=== PATIENT | female | born 1975 | race Caucasian/White ===

== ENCOUNTER 2017-12-04 22:29 | Emergency (ER) | payer MEDICAID ==
[~2017-12-04] VITALS: Ht 121.9 cm; Wt 68.0 kg
[2017-12-04] MEDS ORDERED: HYDR25TA4 PO (22:49)
--- NOTE | 2017-12-04 22:57 | NUR ---
Patient discharged to home in stable conditon. Written and verbal after care instructions given. Patient verbalizes understanding of instructions.
== END 2017-12-04 22:58 | disposition home or self-care (01) ==
LOC: ER 22:30
DX: J40 Bronchitis, not specified as acute or chronic (principal); I10 Essential (primary) hypertension; Z79.899 Other long term (current) drug therapy
CPT/HCPCS: A4663

== ENCOUNTER 2018-07-25 22:29 | Emergency (ER) | payer MEDICAID ==
[~2018-07-25] VITALS: Ht 149.9 cm; Wt 86.2 kg
[~2018-07-25 22:29] MED LIST: HYDR25TA4 PO
--- NOTE | 2018-07-25 22:47 | NUR ---
Dr. Gary at bedside for MSE. Pt ambulated in ER with stable gait. Pt is AAO x 4, maltese speaking only. Pt is stating that she had pressure/pinching pain on her chest radiating to her back at 5 pm today, which she has never felt before. At this time, pt is c/o back pain and headache. Pt denies SOB and chest pain. Safe environment implemented, bed in low locked position with side rails up.
--- NOTE | 2018-07-25 23:32 | NUR ---
Pt in bed at this time, in no acute distress.
[2018-07-25 23:35] LABS: BASOPHILS % (AUTO) 0.3 % (0.0-2.0); EOSINOPHILS # (AUTO) 0.6 K/uL (0.0-0.7); EOSINOPHILS % (AUTO) 5.9 % (0.0-7.0); HEMATOCRIT 34.4 % (31.2-41.9); HEMOGLOBIN 11.8 g/dL (10.9-14.3); LYMPHOCYTES # (AUTO) 2.7 K/uL (20.0-40.0); LYMPHOCYTES % (AUTO) 28.7 % (20.5-51.5); MEAN CORPUSCULAR HGB CONC 34 g/dL (32.3-35.6); MEAN CORPUSCULAR VOLUME 84.6 fL (75.5-95.3); MONOCYTES # (AUTO) 0.6 K/uL (2.0-10.0); MONOCYTES % (AUTO) 6.8 % (0.0-11.0); NEUTROPHILS # (AUTO) 5.5 K/uL (1.8-8.9); NEUTROPHILS % (AUTO) 58.3 % (38.5-71.5); PLATELET COUNT (AUTO) 221 K/uL (179-408); RED BLOOD CELL COUNT(AUTO) 4.06 MIL/uL (3.63-4.92); WHITE BLOOD COUNT (AUTO) 9.4 K/uL (3.8-11.8)
[2018-07-25 23:40] LABS: BILIRUBIN,DIRECT 0.1 mg/dL (0.0-0.2); BILIRUBIN,TOTAL 0.4 mg/dL (0.2-1.0); POTASSIUM 3.2 mmol/L (3.5-5.1); TOTAL PROTEIN, SERUM 7.7 g/dL (6.4-8.2)
[2018-07-25 23:44] LABS: *URINE HCG, QUAL NEGATIVE (NEGATIVE)
--- NOTE | 2018-07-26 00:24 | NUR ---
Pt went down to radiology dept for CTA.
[2018-07-26] MEDS ORDERED: IV NORMAL SALINE 250 ML IV ONE (00:28)
[2018-07-26] MEDS ORDERED: SWABABLE VALVE TRANSFER SET EA MC ONE (00:28)
[2018-07-26] MEDS ORDERED: IOHEXOL 350 100 ML INFUS..BTL ONE (00:28)
[2018-07-26] MEDS ORDERED: NORMAL SALINE FLUSH 10 ML DISP.SYRIN ONE (00:28)
--- NOTE | 2018-07-26 01:00 | NUR ---
Pt back in room from CT
[2018-07-26] MEDS ORDERED: CLONIDINE HCL 0.2 MG TABLET ONE (01:43)
[2018-07-26] MEDS ORDERED: CLONIDINE HCL 0.2 MG TABLET PO ONE (01:45)
--- NOTE | 2018-07-26 01:47 | NUR ---
Spoke with ER MD regarding plan of care. Awaiting 2nd troponin scheduled at 0208 per MD.
--- NOTE | 2018-07-26 02:12 | NUR ---
Lab at bedside for blood draw
--- NOTE | 2018-07-26 03:06 | NUR ---
IV removed. Catheter intact and site benign. Pressure and 4x4 gauze applied to site. No bleeding noted. Patient discharged to home in stable conditon. Written and verbal after care instructions given. Patient verbalizes understanding of instructions. All belongings taken with patient. Pt ambulated out of ER with son with stable gait.
[2018-07-26 03:08] VITALS: BP 148/91
== END 2018-07-26 03:06 | disposition home or self-care (01) ==
LOC: ER 22:31
DX: R07.89 Other chest pain (principal); I10 Essential (primary) hypertension; R06.02 Shortness of breath; M54.9 Dorsalgia, unspecified; Z79.899 Other long term (current) drug therapy
CPT/HCPCS: 36415 ×2; 71045; 71275; 80048; 80076; 84484 ×2; 84703; 85025; 93005 ×2; 99284; Q9967; 70030-TC; A4663; J3490; J7050

== ENCOUNTER 2019-04-03 11:11 | Emergency (ER) | payer MEDICAID ==
[~2019-04-03] VITALS: Ht 134.6 cm; Wt 81.6 kg
--- NOTE | 2019-04-03 11:20 | NUR ---
Dr. Galan at the bedside for MSE.
[2019-04-03] MEDS ORDERED: ONDANSETRON 4 MG/2 ML VIAL IV ONE (11:30)
[2019-04-03] MEDS ORDERED: PANTOPRAZOLE SODIUM 40 MG VIAL IV ONE (11:30)
[2019-04-03] MEDS ORDERED: IV NORMAL SALINE 1000 ML BAG IV ONE (11:30)
[2019-04-03] MEDS ORDERED: LABETALOL HCL 100 MG/20 ML VIAL IV ONE (11:30)
[2019-04-03] MEDS ORDERED: PANTOPRAZOLE SODIUM 40 MG VIAL ONE (11:37)
[2019-04-03] MEDS ORDERED: ONDANSETRON 4 MG/2 ML VIAL ONE (11:38)
[2019-04-03] MEDS ORDERED: LABETALOL HCL 100 MG/20 ML VIAL ONE (11:38)
[2019-04-03 11:53] LABS: BASOPHILS % (AUTO) 0.4 % (0.0-2.0); EOSINOPHILS # (AUTO) 0.2 K/uL (0.0-0.7); EOSINOPHILS % (AUTO) 3.5 % (0.0-7.0); HEMATOCRIT 35.9 % (31.2-41.9); HEMOGLOBIN 11.8 g/dL (10.9-14.3); LYMPHOCYTES # (AUTO) 1.8 K/uL (20.0-40.0); LYMPHOCYTES % (AUTO) 27.3 % (20.5-51.5); MEAN CORPUSCULAR HEMOGLOBIN 26.8 uug (24.7-32.8); MEAN CORPUSCULAR HGB CONC 33 g/dL (32.3-35.6); MEAN CORPUSCULAR VOLUME 81.2 fL (75.5-95.3); MONOCYTES # (AUTO) 0.4 K/uL (2.0-10.0); MONOCYTES % (AUTO) 6.5 % (0.0-11.0); NEUTROPHILS % (AUTO) 62.3 % (38.5-71.5); PLATELET COUNT (AUTO) 265 K/uL (179-408); RED BLOOD CELL COUNT(AUTO) 4.42 MIL/uL (3.63-4.92); WHITE BLOOD COUNT (AUTO) 6.4 K/uL (3.8-11.8)
[2019-04-03 11:54] VITALS: BP 192/111
[2019-04-03 11:58] LABS: CREATININE 0.9 mg/dL (0.6-1.3); POTASSIUM 3.6 mmol/L (3.5-5.1)
[2019-04-03 12:00] LABS: BILIRUBIN,DIRECT 0.2 mg/dL (0.0-0.2); BILIRUBIN,TOTAL 0.7 mg/dL (0.2-1.0); TOTAL PROTEIN, SERUM 8.3 g/dL (6.4-8.2)
--- NOTE | 2019-04-03 12:30 | NUR ---
Patient discharged to home in stable conditon. Written and verbal after care instructions given. Patient verbalizes understanding of instructions.
== END 2019-04-03 12:30 | disposition home or self-care (01) ==
LOC: ER 11:11
DX: I10 Essential (primary) hypertension (principal); K29.20 Alcoholic gastritis without bleeding; Z90.710 Acquired absence of both cervix and uterus; Z79.899 Other long term (current) drug therapy
CPT/HCPCS: 36415; 80048; 80076; 83690; 85025; 96361; 96374; 96375; 99283; C9113; J2405; J3490; A4663; J7030

== ENCOUNTER 2020-02-17 21:06 | Emergency (ER) | payer MEDICAID ==
[~2020-02-17] VITALS: Ht 160 cm; Wt 81.6 kg
--- NOTE | 2020-02-17 21:20 | NUR ---
Patient walked into ER c/o intermitten fever for 9 days with dry cough. Denies SOB at this time. No distress noted.
--- NOTE | 2020-02-17 21:23 | NUR ---
Dr Gary into eval patient.
--- NOTE | 2020-02-17 22:35 | NUR ---
Gave ACI/pamphlet regarding self isolation for covid 19 and S/S when to return to ER.
--- NOTE | 2020-02-17 22:37 | NUR ---
Patient discharged to home in stable condition. Written and verbal after care instructions given. Patient verbalizes understanding of instructions. Stressed follow up or return to ER for worsening s/s.
[2020-02-17 22:40] VITALS: BP 158/99
== END 2020-02-17 22:43 | disposition home or self-care (01) ==
LOC: ER 21:07
DX: B34.9 Viral infection, unspecified (principal); I11.9 Hypertensive heart disease without heart failure; Z90.710 Acquired absence of both cervix and uterus
CPT/HCPCS: 71045; A4663

== ENCOUNTER 2020-08-09 06:27 | Emergency (ER) | payer MEDICAID ==
[~2020-08-09] VITALS: Ht 149.9 cm; Wt 78.9 kg
== END 2020-08-09 07:44 | disposition home or self-care (01) ==
LOC: ER 06:30
DX: R05 Cough (principal); R50.9 Fever, unspecified; M79.10 Myalgia, unspecified site; R51.9 Headache, unspecified; Z20.828 Contact with and (suspected) exposure to other viral communicable diseases; I10 Essential (primary) hypertension; Z79.899 Other long term (current) drug therapy
CPT/HCPCS: 71045; 99284; U0003; A4663